=== PATIENT | male | born 1995 | race Caucasian/White ===

== ENCOUNTER 2021-06-09 13:19 | Emergency (ER) | payer OTHER ==
[~2021-06-09] VITALS: Ht 177.8 cm; Wt 100.0 kg
--- NOTE | 2021-06-09 14:02 | REP ---
INDICATION: trauma. COMPARISON: Foot series this date TECHNIQUE: Four views FINDINGS: Prominent soft tissue swelling anterolateral aspect of the ankle and avulsion fragment off the distal tip of the lateral malleolus noted with a few mm of distraction. Mortise joint with symmetric and preserved. There are no other tibial or fibular fractures. No talar dome osteochondral defect. Talus, calcaneus and subtalar joints are unremarkable. Talonavicular and calcaneocuboid joints are normal. The visualized tarsal bones intact. No heel spurs. IMPRESSION: 1. Avulsion fracture of the distal tip of the lateral malleolus with prominent soft tissue swelling about the anterolateral ankle. No other bony finding. <Electronically signed by Fernando Murphy > 06/09/21 [id number]
--- NOTE | 2021-06-09 14:07 | REP ---
INDICATION: trauma. COMPARISON: Ankle series this date TECHNIQUE: Four views FINDINGS: Prominent soft tissue swelling anterolateral aspect of the ankle and hindfoot. The known avulsion fracture of the distal tip of the lateral malleolus poorly visualized on this foot x-ray. Talus, calcaneus and subtalar joints were unremarkable. No heel spurs. Tarsal bones and articulations with each other in the adjacent hindfoot and metatarsals intact. Metatarsals phalanges and their joints were unremarkable. IMPRESSION: 1. Prominent soft tissue swelling anterolateral aspect of the ankle with poor visualization of the known distal lateral malleolar avulsion that was well seen on ankle series. 2. No other significant finding. <Electronically signed by Fernando Murphy > 06/09/21 [id number]
[2021-06-09] MEDS ORDERED: IBUP80TA PO (16:38)
[2021-06-09] MEDS ORDERED: IBUPROFEN 800 MG TAB PO ONE (16:40)
[2021-06-09 16:56] VITALS: BP 132/90
--- NOTE | 2021-06-10 10:16 | ED PDOC ---
Post-Departure Follow-Up ft tesfaye cummins faxed formal report of left ankle film for fu Joan Barone MD Jun 10, 2021 10:16
== END 2021-06-09 16:58 | disposition home or self-care (01) ==
LOC: M ED 13:19
DX: S82.62XA Displaced fracture of lateral malleolus of left fibula, initial encounter for closed fracture (principal); W18.42XA Slipping, tripping and stumbling without falling due to stepping into hole or opening, initial encounter; Y92.9 Unspecified place or not applicable; Y93.02 Activity, running; Y99.9 Unspecified external cause status

== ENCOUNTER → 2021-11-05 | Outpatient (CLI) | payer OTHER ==
[~2021-11-05] MED LIST: IBUP80TA PO; ISOVUE-370 76% 100ML VIAL As Ordered ONE
--- NOTE | 2021-11-05 10:10 | REP ---
INDICATION: SOB BURCH ? PE COMPARISON: None. TECHNIQUE: CT angiography of the chest after the intravenous administration of 75 cc Isovue 370 FINDINGS: There is excellent visualization of the pulmonary arterial vasculature. There no focal filling defects present that would be considered consistent with acute pulmonary emboli. There are no pleural or pericardial effusions. There is no mediastinal or hilar adenopathy. The imaged upper abdomen and imaged osseous structures are within normal limits. Evaluation of the lung goff shows no abnormal nodules, masses, or opacities. IMPRESSION: CT findings are within normal limits. <Electronically signed by Nicholas Grubbs > 11/05/21 [id number]
== END ==
LOC: M RAD 08:49
PROVIDERS: ATTEND Physician Assistant
DX: R06.02 Shortness of breath (principal)
CPT/HCPCS: 71275; Q9967

== ENCOUNTER 2022-12-01 14:10 | Emergency (ER) | payer OTHER ==
[~2022-12-01] VITALS: Ht 177.8 cm; Wt 107.4 kg
[~2022-12-01 14:10] MED LIST changes: -ISOVUE-370 76% 100ML VIAL As Ordered ONE
[2022-12-01 14:11] VITALS: BP 128/77
== END 2022-12-01 18:08 | disposition left against medical advice (07) ==
LOC: M ED 14:10
DX: Z53.21 Procedure and treatment not carried out due to patient leaving prior to being seen by health care provider (principal)